=== PATIENT | female | born 1995 | race Caucasian/White ===

== ENCOUNTER 2020-08-16 23:15 | Emergency (ER) | payer OTHER ==
[~2020-08-16] VITALS: Ht 165.1 cm; Wt 97.5 kg
[2020-08-16 23:25] VITALS: Ht 165.1 cm; Wt 97.5 kg
[2020-08-17 02:13] VITALS: BP 142/86
== END 2020-08-17 02:13 | disposition home or self-care (01) ==
LOC: ED 23:15
DX: S93.401A Sprain of unspecified ligament of right ankle, initial encounter (principal); V00.131A Fall from skateboard, initial encounter; Y93.21 Activity, ice skating; Y92.89 Other specified places as the place of occurrence of the external cause; Y99.8 Other external cause status